=== PATIENT | male | born 1945 | race Caucasian/White ===

== ENCOUNTER 2022-05-29 07:31 | Emergency (ER) | payer MEDICARE ==
[~2022-05-29] VITALS: Ht 180.3 cm; Wt 102.0 kg
[2022-05-29 07:42] VITALS: BP 159/60
[2022-05-29 07:45] VITALS: BP 155/51
[2022-05-29 08:01] VITALS: BP 150/58
[2022-05-29] MEDS ORDERED: VALACYCLOVIR HCL1 GM PO (08:28)
[2022-05-29] MEDS ORDERED: TOBRADEX OS (08:28)
[2022-05-29 08:31] VITALS: BP 148/60
== END 2022-05-29 08:45 | disposition home or self-care (01) ==
LOC: ED 07:31
DX: B02.9 Zoster without complications (principal); I10 Essential (primary) hypertension; E11.9 Type 2 diabetes mellitus without complications; I25.10 Atherosclerotic heart disease of native coronary artery without angina pectoris; Z95.820 Peripheral vascular angioplasty status with implants and grafts; F17.210 Nicotine dependence, cigarettes, uncomplicated; Z20.822 Contact with and (suspected) exposure to COVID-19